=== PATIENT | male | born 1955 | race Caucasian/White ===

== ENCOUNTER → 2017-01-20 | Outpatient (CLI) | payer OTHER ==
[~2017-01-20] MED LIST: ASPI-496 PO; CARV3.1212 PO; CYAN1TAB29 PO; DIGO250T PO; Magnesium PO; RIVA20TA PO
== END | disposition home or self-care (01) ==
LOC: CVU 08:07
PROVIDERS: ATTEND Internal Medicine Cardiovascular Disease
DX: I34.0 Nonrheumatic mitral (valve) insufficiency (principal); I34.8 Other nonrheumatic mitral valve disorders; I50.9 Heart failure, unspecified; I48.91 Unspecified atrial fibrillation; I51.7 Cardiomegaly
CPT/HCPCS: C8929

== ENCOUNTER → 2018-01-10 | Outpatient (CLI) | payer OTHER | END | disposition home or self-care (01) | LOC: CVU 12:36 → EDSTATUS 13:00 | PROVIDERS: ATTEND Internal Medicine Cardiovascular Disease | DX: I08.1 Rheumatic disorders of both mitral and tricuspid valves (principal); I42.9 Cardiomyopathy, unspecified; I50.9 Heart failure, unspecified; I48.91 Unspecified atrial fibrillation; Z95.810 Presence of automatic (implantable) cardiac defibrillator | CPT/HCPCS: 93306 ==